=== PATIENT | male | born 1950 | race Caucasian/White ===

== ENCOUNTER → 2018-01-18 | Outpatient (CLI) | payer MEDICARE ==
[2018-01-19 18:21] LABS: Tissue Transglutaminase Ab IgA <0.5 U/mL (<15.0); Tissue Transglutaminase Ab IgG <0.8 U/mL (<15.0)
== END | disposition home or self-care (01) ==
LOC: LAB 15:16
PROVIDERS: Nurse Practitioner Primary Care
DX: R70.0 Elevated erythrocyte sedimentation rate (principal); M25.50 Pain in unspecified joint
CPT/HCPCS: 83516

== ENCOUNTER → 2018-01-18 | Outpatient (CLI) | payer MEDICARE | END | disposition home or self-care (01) | LOC: LAB 07:47 → LAB SHORT 07:47 | DX: L25.9 Unspecified contact dermatitis, unspecified cause (principal); R70.0 Elevated erythrocyte sedimentation rate; M25.50 Pain in unspecified joint | CPT/HCPCS: 88305; 88312 ==